=== PATIENT | male | born 1950 | race Caucasian/White ===

== ENCOUNTER → 2017-05-27 | Outpatient (CLI) | payer MEDICARE, BC | LOC: RAD 07:54 | DX: N50.811 Right testicular pain (principal); L72.0 Epidermal cyst ==

== ENCOUNTER → 2019-09-18 | Day surgery (SDC) | payer MEDICARE, BC | LOC: MSO 07:16 | DX: Z12.11 Encounter for screening for malignant neoplasm of colon (principal); I10 Essential (primary) hypertension; G89.29 Other chronic pain; E11.9 Type 2 diabetes mellitus without complications; Z86.010 Personal history of colon polyps; Z90.89 Acquired absence of other organs | CPT/HCPCS: 00812; J2704; J3010; J7030 ==

== ENCOUNTER → 2019-10-25 | Outpatient (CLI) | payer MEDICARE, BC | LOC: RAD 09:00 | DX: M51.37 Other intervertebral disc degeneration, lumbosacral region (principal); M47.816 Spondylosis without myelopathy or radiculopathy, lumbar region ==